=== PATIENT | female | born 1955 | race Caucasian/White ===

== ENCOUNTER → 2017-10-24 | Outpatient (CLI) | payer OTHER ==
[~2017-10-24] MED LIST: HYDR-385 PO; KET10 PO; NO MEDS AT THIS TIME
--- NOTE | 2017-10-26 09:31 | RADIOLOGY IMAGING REPORT ---
FACILITY: [facility] PATIENT NAME: LARRY MORALEZ : [id number] MR: [id number] V: [id number] EXAM DATE: ORDERING PHYSICIAN: VITO HOOKS TECHNOLOGIST: Heather Castañeda PROCEDURE:BILATERAL DIGITAL SCREENING MAMMOGRAM WITH CAD AND 3D BREAST TOMOSYNTHESIS. COMPARISON:04/07/15, priors to 12/20/10. INDICATIONS:ROUTINE SCREENING FINDINGS: The breasts have scattered fibroglandular parenchymal densities. There are no mammographic findings concerning for malignancy. No significant interval change. DIAGNOSTIC CATEGORY 1--NEGATIVE. RECOMMENDATIONS: ROUTINE MAMMOGRAM AND CLINICAL EVALUATION. IMPRESSION: Bi-RADS 1: Negative. RECOMMENDATION: Followup screening mammogram in one year. Dictated by: Sanchez Humphries on 10/24/2017 at 13:19 Transcribed by: AFTMATA on 10/24/2017 at 23:10 Approved by: Magda Hanson M.D. on 10/26/2017 at 8:55 [facility]
== END ==
LOC: MAMO 01:51
PROVIDERS: ATTEND Emergency Medicine
DX: Z12.31 Encounter for screening mammogram for malignant neoplasm of breast (principal)
CPT/HCPCS: 77063; 77067

== ENCOUNTER 2018-05-17 00:38 | Day surgery (SDC) | payer OTHER ==
[~2018-05-17] VITALS: Ht 167.6 cm; Wt 55.8 kg
[~2018-05-17 00:38] MED LIST changes: +IBUP-56 PO
[2018-05-17] MEDS ORDERED: PROPOFOL EMUL(*) 10MG/ML 20 ML 20 ML ONE (07:09)
[2018-05-17 08:43] VITALS: BP 153/86
[2018-05-17] MEDS ORDERED: LIDOCAINE/SOD BICARB 8.4% SYR ID ONE (08:55)
[2018-05-17] MEDS ORDERED: NORMOSOL R SOLN(*) 1000 ML BAG 1,000 ML IV PRN (08:55)
[2018-05-17 11:27] VITALS: BP 126/74
[2018-05-17 11:30] VITALS: BP 129/70
--- NOTE | 2018-05-17 11:36 | Short(Outpt) Discharge Summary ---
Discharge Summary Reason for Hosp/Final Diag: (1) Colon cancer screening Status: Chronic Hospital Course & Plan: Colonoscopy with polypectomy x1 completed without any problems. Departure Discharge to: Home, Self Care Discharge Instructions Home Meds Reported Medications Ibuprofen (IBUPROFEN) 200 Mg Tablet, 1 TAB PO Q6H Y for PAIN, TAB 05/08/18 Diet: Regular Activity: As Tolerated Special Instructions: Your colonoscopy was completed without problems and your prep was excellent (Good Job!!). I removed a tiny polyp from your descending colon and it was sent to pathology for analysis. My office will call you in the next week or so to let you know what the polyp is and when your next colonoscopy should be (either 5 or 10 years from now) depending on the pathology results. I placed a small titanium clip on the polyp removal site and this will fall off and you will pass it in your stool in the next 9 or so days. It is small and you will likely not even see it when it passes. Do not get an MRI in the next 30 days and if you absolutely have to have an abdominal x-ray first to make sure the clip is no longer present. Avoid NSAIDS (ibuprofen, motrin, advil, aleve, etc) for 5 days to allow the biopsy site to heal and to prevent bleeding from the site. GLADYS TARANGO MD May 17, 2018 11:36
[2018-05-17 11:45] VITALS: BP 141/89
[2018-05-17 11:57] VITALS: BP 156/92
[2018-05-17 11:58] VITALS: BP 156/83
== END 2018-05-17 12:05 | disposition home or self-care (01) ==
LOC: OR 00:38
PROVIDERS: ATTEND Surgery
DX: Z12.11 Encounter for screening for malignant neoplasm of colon (principal); K63.5 Polyp of colon
CPT/HCPCS: 00811; 45380; 88305; J2704

== ENCOUNTER → 2018-09-18 | Outpatient (CLI) | payer OTHER ==
[2018-09-18 09:22] LABS: PLATELET COUNT, AUTOMATED 222 K/uL (150-450)
== END ==
LOC: LAB 08:57
PROVIDERS: ATTEND Emergency Medicine
DX: R79.89 Other specified abnormal findings of blood chemistry (principal)
CPT/HCPCS: 36415; 81001; 82043; 82310; 82374; 82435; 82565; 82607; 82610; 82947; 84132; 84295; 84520; 85025

== ENCOUNTER → 2018-10-25 | Outpatient (CLI) | payer OTHER ==
[~2018-10-25] MED LIST changes: +CYAN500T38 PO
--- NOTE | 2018-10-25 16:43 | RADIOLOGY IMAGING REPORT ---
FACILITY: [facility] - [place], [place] PATIENT NAME: LARRY MORALEZ : [id number] MR: [id number] V: [id number] EXAM DATE: ORDERING PHYSICIAN: VITO HOOKS TECHNOLOGIST: Aurea An PROCEDURE:BILATERAL DIGITAL SCREENING MAMMOGRAM WITH CAD ASSISTED INTERPRETATION & 3D TOMOSYNTHESIS COMPARISON:Prior mammograms 10/24/17, 04/07/15, 02/04/14, 02/02/13, 12/30/11. INDICATIONS:screening FINDINGS: The breasts are heterogeneously dense which can obscure small masses. The parenchymal pattern has remained stable allowing for difference in mammographic technique & patient positioning. DIAGNOSTIC CATEGORY 1--NEGATIVE. RECOMMENDATIONS: ROUTINE MAMMOGRAM AND CLINICAL EVALUATION. IMPRESSION: BIRADS 1: Negative. No significant abnormality is seen. Dictated by: Magda Hanson M.D. on 10/25/2018 at 15:24 Transcribed by: THAO on 10/25/2018 at 15:30 Approved by: Magda Hanson M.D. on 10/25/2018 at 16:42 [facility]
== END ==
LOC: MAMO 00:20
PROVIDERS: ATTEND Emergency Medicine
DX: Z12.31 Encounter for screening mammogram for malignant neoplasm of breast (principal)
CPT/HCPCS: 77063; 77067